=== PATIENT | female | born 1985 | race Caucasian/White ===

== ENCOUNTER 2017-01-10 07:08 | Emergency (ER) | payer OTHER ==
[~2017-01-10] VITALS: Ht 175.3 cm; Wt 77.3 kg
[2017-01-10] MEDS ORDERED: TRAM50TA4 PO (07:18)
[2017-01-10] MEDS ORDERED: NAPR-58 PO (07:18)
[2017-01-10 08:00] LABS: BASOPHILS % (AUTO) 0.2 % (0.0-2.0); EOSINOPHILS % (AUTO) 0.7 % (1.0-6.0); HEMATOCRIT 37.1 % (36-46); LYMPHOCYTES # (AUTO) 0.2 K/uL (1.0-4.8); LYMPHOCYTES % (AUTO) 1.4 % (22.0-44.0); MEAN CORPUSCULAR HEMOGLOBIN 27.2 pg (26.0-34.0); MEAN CORPUSCULAR HGB CONC 32.4 G/dL (31.0-37.0); MEAN CORPUSCULAR VOLUME 84 fL (80-100); MONOCYTES # (AUTO) 0.6 K/uL (0.1-1.0); MONOCYTES % (AUTO) 5.2 % (2.0-9.0); NEUTROPHILS # (AUTO) 10.7 K/uL (1.8-7.7); PLATELET COUNT (AUTO) 266 K/uL (150-450); RED BLOOD CELL COUNT(AUTO) 4.42 MIL/uL (4.00-5.20); RED CELL DISTRIBUTION WIDTH 13.9 % (11.5-14.5); WHITE BLOOD COUNT (AUTO) 11.6 K/uL (4.5-11.0)
[2017-01-10 08:10] LABS: ANION GAP 11 mmol/L (8-16); CARBON DIOXIDE 25 mmol/L (22-29); CHLORIDE 102 mmol/L (98-107); CREATININE 1.01 mg/dL (0.60-1.30); GLOMERULAR FILTR. RATE CALC > 60 mL/min (>60); POTASSIUM 3.7 mmol/L (3.5-5.1); SODIUM SERUM 138 mmol/L (136-145); UREA NITROGEN, BLOOD 10 mg/dL (7-18)
[2017-01-10 08:11] LABS: APPEARANCE,URINE TURBID (CLEAR); GLUCOSE, URINE (UA) NEGATIVE (NEGATIVE); KETONES,URINE NEGATIVE (NEGATIVE); LEUKOCYTE ESTERASE ,URINE LARGE (NEGATIVE); OCCULT BLOOD,URINE SMALL (NEGATIVE); PROTEIN,URINE POS 1+ (NEGATIVE)
[2017-01-10 08:16] LABS: ALANINE AMINOTRANSFERASE 27 U/L (12-78); ALBUMIN 3.8 g/dL (3.4-5.0); ASPARTATE AMINOTRANSFERASE 19 U/L (15-37); BILIRUBIN,TOTAL 0.5 mg/dL (0.1-1.0); NEUTROPHILS % (AUTO) 92.5 % (40.0-70.0); TOTAL PROTEIN, SERUM 7.7 g/dL (6.4-8.2)
[2017-01-10 08:22] LABS: RBC MORPHOLOGY COMMENT NORMAL RBC MORPH
[2017-01-10 08:26] LABS: ADD UA MICROSCOPIC YES
[2017-01-10 08:29] LABS: SQUAMOUS EPITHELIAL CELL,UR Few /LPF (None Seen); WBC,URINE >100 /HPF (0-5)
[2017-01-10] MEDS ORDERED: ACETAMINOPHEN 500 MG TABLET PO ONE (08:45)
[2017-01-10] MEDS ORDERED: NITROFURANTOIN/NITROFURAN MAC 100 MG CAPSULE [MACROBID] PO ONE (08:45)
[2017-01-10] MEDS ORDERED: PHENAZOPYRIDINE HCL 100 MG TABLET PO ONE (08:45)
[2017-01-10] MEDS ORDERED: CIPROFLOXACIN HCL 250 MG TABLET PO ONE (09:00)
[2017-01-10 09:55] VITALS: BP 122/75
== END 2017-01-10 10:02 | disposition home or self-care (01) ==
LOC: EMS 07:10
DX: N39.0 Urinary tract infection, site not specified (principal)
CPT/HCPCS: 87086; 99284